=== PATIENT | male | born 1970 | race Caucasian/White ===

== ENCOUNTER 2018-03-24 11:53 | Emergency (ER) | payer OTHER ==
[2018-03-24] MEDS: TETRACAINE 0.5% 4 ML OPH RIGHT EYE (13:35)
[2018-03-24] MEDS: FLUORESCEIN STRIP RIGHT EYE (13:35)
[2018-03-24] MEDS: LIDOCAINE 1% (MDV) 10 ML INJ INFIL (13:35)
[2018-03-24] MEDS: DIPHTH/TET/ACEL PERTUSS (ADULT) 0.5 ML VIAL IM* (13:38)
== END 2018-03-24 15:31 | disposition home or self-care (01) ==
LOC: FTE 11:53
DX: S05.01XA Injury of conjunctiva and corneal abrasion without foreign body, right eye, initial encounter (principal); L03.011 Cellulitis of right finger; E11.9 Type 2 diabetes mellitus without complications; X58.XXXA Exposure to other specified factors, initial encounter; Y92.9 Unspecified place or not applicable; Z23 Encounter for immunization; Z79.4 Long term (current) use of insulin
CPT/HCPCS: 10060; 73140; 90471; 90715; 99284-25

== ENCOUNTER 2019-05-08 23:25 | Inpatient (IN) | payer OTHER ==
[2019-05-09 00:20] LABS: URINE BLOOD (Dip) POC 1+ (NEGATIVE); URINE KETONES (Dip) POC 2+ (NEGATIVE); URINE LEUKOCYTE EST (Dip) POC Negative (NEGATIVE); URINE NITRITE (Dip) POC Negative (NEGATIVE); URINE TOTAL PROTEIN POC 2+ (NEGATIVE)
[2019-05-09 00:37] LABS: ADD MAN DIFF? NO
[2019-05-09 00:39] LABS: BASOPHILS % 0.4 % (0.0-2.0); EOSINOPHILS # 0.1 10^3/ul (0.0-0.5); HEMATOCRIT 38.4 % (42.0-52.0); HEMOGLOBIN 12.9 g/dl (14.0-18.0); LYMPHOCYTES # 3.5 10^3/ul (0.8-2.9); LYMPHOCYTES % 36.2 % (15.0-51.0); MEAN CORPUSCULAR HEMOGLOBIN 28.7 pg (29.0-33.0); MEAN CORPUSCULAR HGB CONC 33.6 g/dl (32.0-37.0); MEAN CORPUSCULAR VOLUME 85.3 fl (82.0-101.0); MEAN PLATELET VOLUME 10.1 fl (7.4-10.4); MONOCYTE # 0.5 10^3/ul (0.3-0.9); MONOCYTES % 5.7 % (0.0-11.0); NEUTROPHIL # 5.4 10^3/ul (1.6-7.5); NEUTROPHILS % 56.4 % (39.0-77.0); PLATELET COUNT 254 10^3/UL (140-415); RED CELL DISTRIBUTION WIDTH 11.6 % (11.5-14.5)
[2019-05-09 00:39] LABS: WHITE BLOOD COUNT 9.5 10^3/ul (4.8-10.8)
[2019-05-09] MEDS: KETOROLAC 30 MG INJ IV ×3 (00:44→23:50)
[2019-05-09 00:45] LABS: ALANINE AMINOTRANSFERASE 30 IU/L (13-69); ALBUMIN 4.3 g/dl (3.3-4.9); ALBUMIN/GLOBULIN RATIO 1.26; ALKALINE PHOSPHATASE 75 IU/L (42-121); ANION GAP 10 (5-13); ASPARTATE AMINO TRANSFERASE 21 IU/L (15-46); BILIRUBIN,INDIRECT 0.3 mg/dl (0-1.1); BILIRUBIN,TOTAL 0.3 mg/dl (0.2-1.3); BLOOD UREA NITROGEN 24 mg/dl (7-20); CALCIUM 9.5 mg/dl (8.4-10.2); CARBON DIOXIDE 26 mmol/L (21-31); CHLORIDE 97 mmol/L (97-110); CREATININE 0.78 mg/dl (0.61-1.24); Estimated GFR > 60 mL/min (>60); GLUCOSE 342 mg/dl (70-220); LIPASE 274 U/L (23-300); POTASSIUM 4.1 mmol/L (3.5-5.1); SODIUM 133 mmol/L (135-144); TOTAL PROTEIN 7.7 g/dl (6.1-8.1)
[2019-05-09] MEDS ORDERED: ONDANSETRON 4 MG INJ IV ×3 (07:30→19:00)
[2019-05-09] MEDS ORDERED: ACETAMINOPHEN 325 MG TAB PO (07:30)
[2019-05-09] MEDS ORDERED: hydrALAzine 20 MG INJ IV ×2 (08:00→19:00)
[2019-05-09] MEDS ORDERED: LEVOFLOXACIN 500 MG TAB PO (08:00)
[2019-05-09] MEDS ORDERED: morphine 2 MG INJ IV (08:00)
[2019-05-09] MEDS ORDERED: KETOROLAC 30 MG INJ IV (08:30)
[2019-05-09 09:47] LABS: INR 0.89; PROTIME 12.2 Sec (11.9-14.9)
[2019-05-09 09:48] LABS: PARTIAL THROMBOPLASTIN TIME 29.3 Sec (23.0-35.0)
[2019-05-09] MEDS: LEVOFLOXACIN 500MG/D5W (PMX) 100 ML IVPB (09:54)
[2019-05-09] MEDS: SOD CHLORIDE 0.9% 1,000 ML IV ×2 (09:55→18:00)
[2019-05-09 12:51] LABS: ADD UMIC YES; UR ASCORBIC ACID NEGATIVE (NEGATIVE); UR BILIRUBIN (Dip) NEGATIVE (NEGATIVE); UR BLOOD (Dip) 1+ mg/dL (NEGATIVE); UR CLARITY CLEAR (CLEAR); UR COLOR YELLOW (YELLOW); UR GLUCOSE (Dip) 3+ mg/dL (NEGATIVE); UR KETONES (Dip) 1+ mg/dL (NEGATIVE); UR LEUKOCYTE ESTERASE (Dip) NEGATIVE Leu/ul (NEGATIVE); UR NITRITE (Dip) NEGATIVE (NEGATIVE); UR RBC 0 /HPF (0-5); UR SPECIFIC GRAVITY (Dip) 1.008 (1.003-1.030); UR TOTAL PROTEIN (Dip) NEGATIVE (NEGATIVE); UR UROBILINOGEN (Dip) NEGATIVE (NEGATIVE); UR WBC 3 /HPF (0-5)
[2019-05-09] MEDS ORDERED: GLUCAGON 1 MG INJ IM (13:00)
[2019-05-09] MEDS ORDERED: GLUCOSE GEL 15 GRAM TUBE BUCCAL (13:00)
[2019-05-09] MEDS ORDERED: DEXTROSE 50% 50 ML SYRINGE IV ×2 (13:00)
[2019-05-09] MEDS ORDERED: GLUCOSE GEL 15 GRAM TUBE PO ×2 (13:00)
[2019-05-09] MEDS: INSULIN ASPART [NOVOLOG] 3 ML PEN SC ×3 (13:09→20:43)
[2019-05-09] MEDS: NICOTINE (21 MG/24 HR) PATCH TRANSDERM (13:13)
[2019-05-09] MEDS ORDERED: IOHEXOL 300MG/ML 30 ML BTL (16:14)
[2019-05-09] MEDS ORDERED: SUCCINYLCHOLINE CHLORIDE 100 MG/5 ML SYG IV (17:38)
[2019-05-09] MEDS ORDERED: LIDOCAINE 2% (SDV) 5 ML INJ (17:38)
[2019-05-09] MEDS ORDERED: NEOSTIGMINE 3 MG/3 ML SYRINGE ×2 (17:38→18:15)
[2019-05-09] MEDS ORDERED: PROPOFOL 20 ML (17:38)
[2019-05-09] MEDS ORDERED: GLYCOPYRROLATE 0.4 MG INJ ×3 (17:38→18:15)
[2019-05-09] MEDS ORDERED: ROCURONIUM 50 MG INJ (17:38)
[2019-05-09] MEDS ORDERED: CEFAZOLIN 1 GM INJ (18:15)
[2019-05-09] MEDS ORDERED: EPHEDrine 25 MG/5 ML SYG (18:15)
[2019-05-09 18:43] LABS: CHOL/HDL RATIO 9.8 RATIO; HDL CHOLESTEROL 29 mg/dl (27-67); LDL CHOLESTEROL,CALCULATED 214 mg/dl; TRIGLYCERIDES 217 mg/dl (0-149)
[2019-05-09 18:43] LABS: CHOLESTEROL 286 mg/dl (100-200)
[2019-05-09] MEDS ORDERED: FENTAnyl 50 MCG/ML VIAL (18:49)
[2019-05-09] MEDS ORDERED: FENTAnyl 50 MCG/ML VIAL IV ×3 (19:00)
[2019-05-09] MEDS ORDERED: METOCLOPRAMIDE 10 MG INJ IV (19:00)
[2019-05-09] MEDS ORDERED: LABETALOL HCL 20MG INJ IV (19:00)
[2019-05-09] MEDS ORDERED: MIDAZOLAM 1 MG/ML 2 ML INJ IV (19:00)
[2019-05-09] MEDS ORDERED: EPHEDrine 25 MG/5 ML SYG IV (19:00)
[2019-05-09] MEDS ORDERED: MEPERIDINE 25 MG INJ IV (19:00)
[2019-05-09] MEDS ORDERED: HYDROmorphONE 1 MG/5 ML IV SYRINGE IV ×3 (19:00)
[2019-05-09] MEDS ORDERED: DIPHENHYDRAMINE 50 MG INJ IV (19:00)
[2019-05-09] MEDS: INSULIN GLARGINE [LANTus] (100 UNITS/ML) SYG SC (20:40)
[2019-05-09] MEDS: FAMOTIDINE 20 MG INJ IV (20:45)
[2019-05-09] MEDS: HEPARIN 5,000 UNIT/1 ML VIAL SC (21:00)
[2019-05-10] MEDS: INSULIN ASPART [NOVOLOG] 3 ML PEN SC ×6 (01:32→20:34)
[2019-05-10] MEDS: SOD CHLORIDE 0.9% 1,000 ML IV ×2 (03:16→13:32)
[2019-05-10 05:17] LABS: ADD MAN DIFF? NO
[2019-05-10 05:22] LABS: BASOPHILS % 0.3 % (0.0-2.0); EOSINOPHILS % 0.2 % (0.0-7.0); HEMATOCRIT 38.6 % (42.0-52.0); HEMOGLOBIN 13.2 g/dl (14.0-18.0); LYMPHOCYTES # 2.2 10^3/ul (0.8-2.9); LYMPHOCYTES % 14.5 % (15.0-51.0); MEAN CORPUSCULAR HEMOGLOBIN 28.9 pg (29.0-33.0); MEAN CORPUSCULAR HGB CONC 34.2 g/dl (32.0-37.0); MEAN CORPUSCULAR VOLUME 84.5 fl (82.0-101.0); MEAN PLATELET VOLUME 9.5 fl (7.4-10.4); MONOCYTE # 0.5 10^3/ul (0.3-0.9); MONOCYTES % 3.5 % (0.0-11.0); NEUTROPHIL # 12.3 10^3/ul (1.6-7.5); NEUTROPHILS % 81.1 % (39.0-77.0); PLATELET COUNT 254 10^3/UL (140-415); RED BLOOD COUNT 4.57 10^6/ul (4.70-6.10); RED CELL DISTRIBUTION WIDTH 11.7 % (11.5-14.5)
[2019-05-10 05:22] LABS: WHITE BLOOD COUNT 15.1 10^3/ul (4.8-10.8)
[2019-05-10 05:31] LABS: HEMOGLOBIN A1C 10.9 % (0-5.9)
[2019-05-10 05:56] LABS: ALANINE AMINOTRANSFERASE 22 IU/L (13-69); ALBUMIN 3.8 g/dl (3.3-4.9); ALBUMIN/GLOBULIN RATIO 1.22; ALKALINE PHOSPHATASE 62 IU/L (42-121); ANION GAP 9 (5-13); ASPARTATE AMINO TRANSFERASE 21 IU/L (15-46); BILIRUBIN,INDIRECT 0.6 mg/dl (0-1.1); BILIRUBIN,TOTAL 0.6 mg/dl (0.2-1.3); BLOOD UREA NITROGEN 20 mg/dl (7-20); CALCIUM 8.8 mg/dl (8.4-10.2); CARBON DIOXIDE 28 mmol/L (21-31); CHLORIDE 97 mmol/L (97-110); CREATININE 0.83 mg/dl (0.61-1.24); Estimated GFR > 60 mL/min (>60); GLUCOSE 275 mg/dl (70-220); POTASSIUM 4.3 mmol/L (3.5-5.1); SODIUM 134 mmol/L (135-144); TOTAL PROTEIN 6.9 g/dl (6.1-8.1)
[2019-05-10 06:01] LABS: PHOSPHORUS 4.1 mg/dl (2.5-4.9)
[2019-05-10 06:01] LABS: MAGNESIUM 1.8 mg/dl (1.7-2.5)
[2019-05-10] MEDS: HEPARIN 5,000 UNIT/1 ML VIAL SC ×2 (08:40→20:35)
[2019-05-10] MEDS: FAMOTIDINE 20 MG INJ IV ×2 (08:40→20:36)
[2019-05-10] MEDS: NICOTINE (21 MG/24 HR) PATCH TRANSDERM (08:41)
[2019-05-10] MEDS: BISACODYL (EC) 5 MG TAB PO (09:51)
[2019-05-10] MEDS: POLYETHYLENE GLYCOL 17 GM PACKET PO (09:51)
[2019-05-10] MEDS: KETOROLAC 30 MG INJ IV (11:38)
[2019-05-10] MEDS: CEFTRIAXONE 1 GM/50 ML (PMX) 50 ML IVPB (18:36)
[2019-05-10] MEDS: INSULIN GLARGINE [LANTus] (100 UNITS/ML) SYG SC (20:34)
[2019-05-11] MEDS: KETOROLAC 30 MG INJ IV (02:54)
[2019-05-11] MEDS: BISACODYL 10 MG SUPP PR (03:04)
[2019-05-11 06:05] LABS: ADD MAN DIFF? NO
[2019-05-11 06:20] LABS: WHITE BLOOD COUNT 9.6 10^3/ul (4.8-10.8)
[2019-05-11 06:20] LABS: BASOPHILS % 0.4 % (0.0-2.0); EOSINOPHILS # 0.1 10^3/ul (0.0-0.5); EOSINOPHILS % 0.8 % (0.0-7.0); HEMATOCRIT 36.1 % (42.0-52.0); HEMOGLOBIN 12.1 g/dl (14.0-18.0); LYMPHOCYTES # 2.8 10^3/ul (0.8-2.9); LYMPHOCYTES % 29.3 % (15.0-51.0); MEAN CORPUSCULAR HEMOGLOBIN 28.5 pg (29.0-33.0); MEAN CORPUSCULAR HGB CONC 33.5 g/dl (32.0-37.0); MEAN CORPUSCULAR VOLUME 85.1 fl (82.0-101.0); MEAN PLATELET VOLUME 9.7 fl (7.4-10.4); MONOCYTE # 0.7 10^3/ul (0.3-0.9); NEUTROPHILS % 62.1 % (39.0-77.0); PLATELET COUNT 259 10^3/UL (140-415); RED BLOOD COUNT 4.24 10^6/ul (4.70-6.10); RED CELL DISTRIBUTION WIDTH 11.9 % (11.5-14.5)
[2019-05-11 07:19] LABS: ANION GAP 8 (5-13); BLOOD UREA NITROGEN 14 mg/dl (7-20); CALCIUM 9.1 mg/dl (8.4-10.2); CARBON DIOXIDE 27 mmol/L (21-31); CHLORIDE 100 mmol/L (97-110); CREATININE 0.75 mg/dl (0.61-1.24); Estimated GFR > 60 mL/min (>60); GLUCOSE 310 mg/dl (70-220); SODIUM 135 mmol/L (135-144)
[2019-05-11] MEDS: POLYETHYLENE GLYCOL 17 GM PACKET PO (08:28)
[2019-05-11] MEDS: FAMOTIDINE 20 MG INJ IV (08:28)
[2019-05-11] MEDS: NICOTINE (21 MG/24 HR) PATCH TRANSDERM (08:28)
[2019-05-11] MEDS: HEPARIN 5,000 UNIT/1 ML VIAL SC (08:29)
[2019-05-11] MEDS: INSULIN ASPART [NOVOLOG] 3 ML PEN SC ×4 (08:29→12:24)
[2019-05-11] MEDS: INSULIN GLARGINE [LANTus] (100 UNITS/ML) SYG SC (13:54)
[2019-05-11] MEDS ORDERED: INSULIN GLARGINE [LANTus] (100 UNITS/ML) SYG SC (20:00)
[2019-05-11] MEDS ORDERED: FAMOTIDINE 20 MG TAB PO (21:00)
== END 2019-05-11 14:03 | disposition home or self-care (01) | DRG 660 ==
LOC: E/R 23:25 → PP2 05-09 04:58
PROVIDERS: Internal Medicine
PROC: 0T768DZ Dilation of Right Ureter with Intraluminal Device, Via Natural or Artificial Opening Endoscopic (ICD-10-PCS; principal; 2019-05-09 17:30)
PROC: 0TC68ZZ Extirpation of Matter from Right Ureter, Via Natural or Artificial Opening Endoscopic (ICD-10-PCS; 2019-05-09 17:30)
DX: N20.1 Calculus of ureter (principal); K86.1 Other chronic pancreatitis; I10 Essential (primary) hypertension; K76.0 Fatty (change of) liver, not elsewhere classified; F17.210 Nicotine dependence, cigarettes, uncomplicated; E78.00 Pure hypercholesterolemia, unspecified; E11.65 Type 2 diabetes mellitus with hyperglycemia; E66.9 Obesity, unspecified; D64.9 Anemia, unspecified; Z79.4 Long term (current) use of insulin
CPT/HCPCS: 36415; 71045; 74176; 74181; 74430; 76705; 78226; 80048; 80053; 80061; 81001; 81003; 82962; 83036; 83690; 83735; 84100; 85025; 85610; 85730; 87086; 88300; 93005; 96374; 99285-25